=== PATIENT | female | born 1965 | race Caucasian/White ===

== ENCOUNTER 2022-10-02 13:23 | Emergency (ER) | payer OTHER ==
[2022-10-02] MEDS ORDERED: Ketorolac Tromethamine 30 MG/ML VIAL ONE (14:59)
== END 2022-10-02 15:03 | disposition home or self-care (01) ==
LOC: CSHERS 13:23
DX: L03.313 Cellulitis of chest wall (principal); L03.221 Cellulitis of neck
CPT/HCPCS: 96372; 99283; J1885